=== PATIENT | female | born 1970 | race American Indian/Alaskan Native ===

== ENCOUNTER 2019-02-03 12:22 | Emergency (ER) | payer SELFPAY ==
[2019-02-03 12:51] VITALS: BP 154/81
--- NOTE | 2019-02-03 12:53 | Emergency Department Report ---
ED Recheck HPI - General Chief Complaint: Medical Clearance Stated Complaint: DIABETIC/MEDICATION REFILL Time Seen by Provider: 02/03/19 12:48 Source: patient Mode of arrival: Ambulatory Limitations: No Limitations - History of Present Illness Initial Comments: This is a 48-year-old female nontoxic, well nourished in appearance, no acute signs of distress presents to the ED with c/o of medication refill. Stated has just moved from [place] and does not have a PCP. Denies any pain. Denies any complaints. Denies any symptoms. Patient does have empty perception bottles. Denies any bladder or bowel instability. Patient denies any urinary symptoms. Denies any fever, chills, nausea, vomiting, headache, stiff neck, chest pain or shortness of breath. Patient denies any numbness or tingling. Denies any allergies. -: days(s) Returns Today for: request for prescription Symptoms Since Prior Visit: no new symptoms Associated Symptoms: none. denies: fever, chills, chest pain, shortness of breath, rash, malaise, nasuea, abdominal pain - Related Data Previous Rx's Medication Instructions Recorded Last Taken Type Dapagliflozin Propanediol [Farxiga] 10 mg PO DAILY #30 tablet 02/03/19 Unknown Rx Lisinopril [Zestril TAB] 2.5 mg PO QDAY #30 tab 02/03/19 Unknown Rx Sitagliptin Phos/Metformin HCl 1 each PO BID #60 tablet 02/03/19 Unknown Rx [Janumet 50-500 mg Tablet] Allergies Allergy/AdvReac Type Severity Reaction Status Date / Time No Known Allergies Allergy Unverified 02/03/19 12:25 ED Review of Systems ROS: Stated complaint: DIABETIC/MEDICATION REFILL Other details as noted in HPI Constitutional: denies: chills, fever Eyes: denies: eye pain, eye discharge, vision change ENT: denies: ear pain, throat pain Respiratory: denies: cough, shortness of breath, wheezing Cardiovascular: denies: chest pain, palpitations Endocrine: no symptoms reported Gastrointestinal: denies: abdominal pain, nausea, diarrhea Genitourinary: denies: urgency, dysuria, discharge Musculoskeletal: denies: back pain, joint swelling, arthralgia Skin: denies: rash, lesions Neurological: denies: headache, weakness, paresthesias Psychiatric: denies: anxiety, depression Hematological/Lymphatic: denies: easy bleeding, easy bruising ED Past Medical Hx - Past Medical History Previous Medical History?: Yes Hx Diabetes: Yes - Surgical History Past Surgical History?: No - Medications Home Medications: Home Medications Medication Instructions Recorded Confirmed Last Taken Type Dapagliflozin Propanediol [Farxiga] 10 mg PO DAILY #30 tablet 02/03/19 Unknown Rx Lisinopril [Zestril TAB] 2.5 mg PO QDAY #30 tab 02/03/19 Unknown Rx Sitagliptin Phos/Metformin HCl 1 each PO BID #60 tablet 02/03/19 Unknown Rx [Janumet 50-500 mg Tablet] ED Physical Exam - General Limitations: No Limitations General appearance: alert, in no apparent distress - Head Head exam: Present: atraumatic, normocephalic - Neck Neck exam: Present: normal inspection, full ROM - Respiratory Respiratory exam: Present: normal lung sounds bilaterally. Absent: respiratory distress - Cardiovascular Cardiovascular Exam: Present: regular rate, normal rhythm - GI/Abdominal GI/Abdominal exam: Present: soft. Absent: distended - Extremities Exam Extremities exam: Present: normal inspection, full ROM - Back Exam Back exam: Present: normal inspection, full ROM - Neurological Exam Neurological exam: Present: alert, oriented X3, normal gait - Psychiatric Psychiatric exam: Present: normal affect, normal mood - Skin Skin exam: Present: warm, dry, intact, normal color. Absent: rash ED Course - Reevaluation(s) Reevaluation #1: 02/03/19 12:51 Patient is speaking in full sentences with no signs of distress noted. ED Recheck MDM - Medical Decision Making I referred patients medications. Patient does have the empty bottles with her. Patient was instructed to Follow-up with a primary care doctor in 3-5 days or if symptoms worsen and continue return to emergency room as soon as possible. At time of discharge, the patient does not seem toxic or ill in appearance. No acute signs of distress noted. Patient agrees to discharge treatment plan of care. No further questions noted by the patient. Critical care attestation.: If time is entered above; I have spent that time in minutes in the direct care of this critically ill patient, excluding procedure time. ED Disposition Clinical Impression: Medication refill Disposition: DC-01 TO HOME OR SELFCARE Is pt being admited?: No Does the pt Need Aspirin: No Condition: Stable Additional Instructions: Follow-up with a primary care doctor in 3-5 days or if symptoms worsen and continue return to emergency room as soon as possible. Prescriptions: Dapagliflozin Propanediol [Farxiga] 10 mg PO DAILY #30 tablet Sitagliptin Phos/Metformin HCl [Janumet 50-500 mg Tablet] 1 each PO BID #60 tablet Lisinopril [Zestril TAB] 2.5 mg PO QDAY #30 tab Referrals: PRIMARY CAREMD [Referring] - 3-5 Days ALEJANDRO TAYLOR MD [Staff Physician] - 3-[address] [facility] [Outside] - 3-5 Days [facility] [Outside] - 3-5 Days
== END 2019-02-03 13:07 | disposition home or self-care (01) ==
LOC: ED 12:22
DX: E11.9 Type 2 diabetes mellitus without complications (principal); Z76.0 Encounter for issue of repeat prescription; Z79.899 Other long term (current) drug therapy

== ENCOUNTER 2019-02-25 01:26 | Emergency (ER) | payer SELFPAY ==
[2019-02-25] MEDS ORDERED: ASPIRIN 325 MG TAB PO ONE (02:06)
--- NOTE | 2019-02-25 02:33 | XRay Report ---
CHEST 1 VIEW INDICATION: Chest Pain. COMPARISON: None. FINDINGS: Support devices: None. Heart: Within normal limits. Lungs/Pleura: No acute air space or interstitial disease. Additional findings: None. IMPRESSION: No acute abnormality. Signer Name: Parish Delgado MD Signed: 02/25/2019 2:29 AM Workstation Name: [id number]
[2019-02-25] MEDS ORDERED: ACETAMINOPHEN 500 MG TAB PO ONE (03:11)
[2019-02-25] MEDS ORDERED: SUCRALFATE 1 GM/10 ML ORAL LIQD PO ONE (03:11)
[2019-02-25] MEDS ORDERED: FAMOTIDINE 20 MG TAB PO ONE (03:11)
--- NOTE | 2019-02-25 03:14 | Emergency Department Report ---
ED Chest Pain HPI - General Chief Complaint: Chest Pain Stated Complaint: CHEST PAIN Time Seen by Provider: 02/25/19 03:03 Source: patient, RN notes reviewed Mode of arrival: Ambulatory Limitations: No Limitations - History of Present Illness Initial Comments: This is a pleasant 48-year-old female who is not known to this provider previously. She has a history of hypertension and high cholesterol and does not have a local primary care doctor. She [place] here [place] [facility] [place]. She presents to the ER with complaint of resolved central chest pain, which started at approximately 8:00 PM. The pain is now resolved, and it did not radiate to the back, arms or neck. There is no vomiting or diaphoresis. There is no recent aspirin consumption. There is no shortness of breath. There is no malaise or fatigue. The pain is described as aching and throbbing. There is no family history of heart disease and DVT and/or pulmonary embolism that she is aware of. Denies recent cardiac risk stratification. Denies DVT and pulmonary embolus risk factors, and denies at this time. MD Complaint: chest pain -: Gradual, hour(s) Onset: during rest Pain Location: substernal, left chest Pain Radiation: none Severity: mild Quality: aching Consistency: other Improves With: nothing, other Worsens With: nothing, other Aspirin use within the Past 7 Days: (0) No - Related Data On Oral Contraceptives: No Previous Rx's Medication Instructions Recorded Last Taken Type Dapagliflozin Propanediol [Farxiga] 10 mg PO DAILY #30 tablet 02/03/19 Unknown Rx Lisinopril [Zestril TAB] 2.5 mg PO QDAY #30 tab 02/03/19 Unknown Rx Sitagliptin Phos/Metformin HCl 1 each PO BID #60 tablet 02/03/19 Unknown Rx [Janumet 50-500 mg Tablet] Allergies Allergy/AdvReac Type Severity Reaction Status Date / Time No Known Allergies Allergy Unverified 02/03/19 12:25 Heart Score - HEART Score History: Slightly suspicious EKG: Non-specific Age: 45-65 Risk factors: 1-2 risk factors Troponin: < normal limit HEART Score: 3 - Critical Actions Critical Actions: 0-3 pts:0.9-1.7%risk of adverse cardiac event.Candidate for discharge ED Review of Systems ROS: Stated complaint: CHEST PAIN Other details as noted in HPI Constitutional: denies: fever Eyes: denies: eye discharge ENT: denies: congestion Respiratory: denies: cough, wheezing Cardiovascular: chest pain Gastrointestinal: denies: nausea, vomiting Genitourinary: denies: dysuria Musculoskeletal: denies: back pain Skin: denies: lesions Neurological: denies: weakness Hematological/Lymphatic: denies: easy bleeding ED Past Medical Hx - Past Medical History Previous Medical History?: Yes Hx Hypertension: Yes Hx Diabetes: Yes - Surgical History Past Surgical History?: No Additional Surgical History: cataract sx bilaterally 2018 - Social History Smoking Status: Never Smoker Substance Use Type: None - Medications Home Medications: Home Medications Medication Instructions Recorded Confirmed Last Taken Type Dapagliflozin Propanediol [Farxiga] 10 mg PO DAILY #30 tablet 02/03/19 Unknown Rx Lisinopril [Zestril TAB] 2.5 mg PO QDAY #30 tab 02/03/19 Unknown Rx Sitagliptin Phos/Metformin HCl 1 each PO BID #60 tablet 02/03/19 Unknown Rx [Janumet 50-500 mg Tablet] ED Physical Exam - General Limitations: No Limitations General appearance: alert, in no apparent distress - Head Head exam: Present: atraumatic, normocephalic - Eye Eye exam: Present: normal appearance, PERRL, EOMI. Absent: nystagmus - ENT ENT exam: Present: normal exam, normal orophraynx, mucous membranes moist, normal external ear exam - Neck Neck exam: Present: normal inspection, full ROM. Absent: tenderness, meningismu s - Respiratory Respiratory exam: Present: normal lung sounds bilaterally. Absent: respiratory distress - Cardiovascular Cardiovascular Exam: Present: regular rate, normal rhythm, normal heart sounds. Absent: bradycardia, tachycardia, irregular rhythm, systolic murmur, diastolic murmur, rubs, gallop - GI/Abdominal GI/Abdominal exam: Present: soft. Absent: distended, tenderness, guarding, rebound, rigid, pulsatile mass - Extremities Exam Extremities exam: Present: normal inspection, full ROM, other (2+ pulses noted in the bilateral upper, lower extremities. There is no long bone tenderness. Musculoskeletal compartments are soft. The pelvis is stable.). Absent: pedal edema, joint swelling, calf tenderness - Back Exam Back exam: Present: normal inspection, full ROM. Absent: tenderness, CVA tenderness (R), muscle spasm, paraspinal tenderness, vertebral tenderness - Neurological Exam Neurological exam: Present: alert, oriented X3, normal gait, other (there is no facial droop. The tongue is midline. Extraocular movements are intact bilaterally. Patient speaking in full complete sentences. Shoulder shrug is intact bilaterally. Hearing is grossly intact bilaterally. Visual acuity intact to finger counting and color perception at a close distance. 5/5 strength 4 extremities. Sensation intact to light touch in 4 extremities.). Absent: motor sensory deficit - Psychiatric Psychiatric exam: Present: flat affect - Skin Skin exam: Present: warm, dry, intact, normal color. Absent: rash ED Course Vital Signs 02/25/19 02/25/19 02/25/19 01:35 01:54 03:13 Temperature 98.6 F 98.6 F Pulse Rate 80 80 Respiratory 18 18 Rate Blood Pressure 128/78 128/76 O2 Sat by Pulse 98 96 100 Oximetry 02/25/19 02/25/19 02/25/19 03:15 03:30 03:45 Temperature Pulse Rate 89 88 91 H Respiratory 13 14 15 Rate Blood Pressure 134/88 139/91 148/90 O2 Sat by Pulse 99 100 Oximetry - Reevaluation(s) Reevaluation #1: 02/25/19 04:34 Differential diagnosis, including not limited to: GERD, gastritis, hiatal hernia, pneumonia, acute coronary syndrome, costochondritis Assessment and plan: 48-year-old female, no pulmonary embolism or DVT risk factors, low risk by well's criteria, not tachycardic, tachypneic, or hypoxic, perc negative, with chest pain, unremarkable EKG 2, low risk by heart score. Patient resting comfortably in stretcher and in no acute distress. We will check EKG 2, troponin 2, and observe the patient. As per this hospital's protocol and policy, patient may obtain an expedited outpatient cardiology follow-up to complete a cardiac risk stratification. The patient's information has been sent to our local cardiology practice, currently, she is resting comfortably, and in no acute distress. At this point time, do not anticipate need for admission for cardiac risk stratification, especially given that she can follow-up as an outpatient. Reevaluation #2: 02/25/19 05:59 troponin neg x 2 ekg unchanged x 2 sleeping in stretcher and in no acute distress RAMEZ score - Ramez Score Age > 65: (0) No Aspirin use within the Past 7 Days: (0) No 3 or more CAD Risk Factors: (0) No 2 or more Angina events in past 24 hrs: (0) No Known CAD with more than 50% Stenosis: (0) No Elevated Cardiac Markers: (0) No ST Deviation Greater than 0.5mm: (0) No RAMEZ Score: 0 ED Medical Decision Making - Lab Data Result diagrams: 02/25/19 02:11 02/25/19 02:11 Vital Signs 02/25/19 02/25/19 02/25/19 01:35 01:54 03:13 Temperature 98.6 F 98.6 F Pulse Rate 80 80 Respiratory 18 18 Rate Blood Pressure 128/78 128/76 O2 Sat by Pulse 98 96 100 Oximetry 02/25/19 02/25/19 02/25/19 03:15 03:30 03:45 Temperature Pulse Rate 89 88 91 H Respiratory 13 14 15 Rate Blood Pressure 134/88 139/91 148/90 O2 Sat by Pulse 99 100 Oximetry Lab Results 02/25/19 02/25/19 02/25/19 Range/Units 02:11 03:43 03:43 WBC 5.7 (4.5-11.0) K/mm3 RBC 4.11 (3.65-5.03) M/mm3 Hgb 12.8 (10.1-14.3) gm/dl Hct 38.2 (30.3-42.9) % MCV 93 (79-97) fl MCH 31 (28-32) pg MCHC 34 (30-34) % RDW 15.3 H (13.2-15.2) % Plt Count 181 (140-440) K/mm3 Lymph % (Auto) 36.9 H (13.4-35.0) % Brown % (Auto) 9.7 H (0.0-7.3) % Eos % (Auto) 0.6 (0.0-4.3) % Baso % (Auto) 0.7 (0.0-1.8) % Lymph # 2.1 (1.2-5.4) K/mm3 Brown # 0.5 (0.0-0.8) K/mm3 Eos # 0.0 (0.0-0.4) K/mm3 Baso # 0.0 (0.0-0.1) K/mm3 Seg Neutrophils % 52.1 (40.0-70.0) % Seg Neutrophils # 2.9 (1.8-7.7) K/mm3 PT 13.1 (12.2-14.9) Sec. INR 1.00 (0.87-1.13) Magnesium 1.90 (1.7-2.3) mg/dL Total Creatine Kinase 354 H (30-135) units/L - EKG Data -: EKG Interpreted by Vt - EKG Data 02/25/19 04:33 EKG #2 shows a sinus rhythm, 89 beats for minute, normal axis, MD interval prolonged, there is motion artifact, the EKG is not consistent with STEMI EKG #2 is basically unchanged from EKG #1. There is no prior EKG available for comparison. Not consistent with STEMI - Radiology Data Radiology results: report reviewed, image reviewed X-ray the chest is negative for acute disease Critical care attestation.: If time is entered above; I have spent that time in minutes in the direct care of this critically ill patient, excluding procedure time. ED Disposition Clinical Impression: History of chest pain Disposition: DC-01 TO HOME OR SELFCARE Is pt being admited?: No Does the pt Need Aspirin: No Condition: Stable Additional Instructions: Continue outpatient medications. Patient may start taking daily aspirin, 81 mg. This can be purchased [id number]. [facility] within the next 3-5 days. Contacted any of the listed cardiology groups to arrange close outpatient follow-up. Follow-up with the primary care doctor within the next 4-6 weeks. Return to the emergency room right away with new, worsened, different symptoms, or symptoms not present on initial emergency room evaluation. Avoid consumption of Motrin, ibuprofen, Naprosyn, Aleve, heavy and/or spicy foods, and limit consumption of alcohol. Referrals: VINCENT SHARMA MD [Staff Physician] - 3-5 Days BART MONGE MD [Staff Physician] - 3-5 Days [id number] [Provider Group] - 3-5 Days [facility] [Provider Group] - 3-5 Days [facility] [Provider Group] - 3-5 Days
[2019-02-25 03:35] LABS: Basophils % (Auto) 0.7 % (0.0-1.8); Eosinophils % (Auto) 0.6 % (0.0-4.3); Hematocrit 38.2 % (30.3-42.9); Hemoglobin 12.8 gm/dl (10.1-14.3); Lymphocytes # (Auto) 2.1 K/mm3 (1.2-5.4); Lymphocytes % (Auto) 36.9 % (13.4-35.0); Mean Corpuscular HGB Conc 34 % (30-34); Mean Corpuscular Volume 93 fl (79-97); Monocytes # (Auto) 0.5 K/mm3 (0.0-0.8); Monocytes % (Auto) 9.7 % (0.0-7.3); Platelet Count 181 K/mm3 (140-440); Red Blood Count 4.11 M/mm3 (3.65-5.03); Red Cell Distribution Width 15.3 % (13.2-15.2)
[2019-02-25 04:54] LABS: BUN/Creatinine Ratio 23; Blood Urea Nitrogen 18 mg/dL (7-17); Hemolysis Index 22
[2019-02-25 06:21] VITALS: BP 122/90
== END 2019-02-25 06:22 | disposition home or self-care (01) ==
LOC: ED 01:26
DX: R07.2 Precordial pain (principal); I10 Essential (primary) hypertension; E11.9 Type 2 diabetes mellitus without complications; E78.00 Pure hypercholesterolemia, unspecified; Z79.899 Other long term (current) drug therapy
CPT/HCPCS: 36415; 71045; 80048; 82550; 83735; 84484; 84702; 85025; 85610; 93005; 93010; 99284